=== PATIENT | female | born 1930 | race Caucasian/White ===

== ENCOUNTER → 2016-07-25 | Outpatient (CLI) | payer OTHER ==
[~2016-07-25] MED LIST: MULTI VITAMIN1 EACH PO; NAMENDA 10 MG T10 MG PO; NAPROSYN250 MG PO; NORCO 5-325 TA1 EACH PO
== END ==
LOC: RAD 11:06
DX: M47.894 Other spondylosis, thoracic region (principal); R05 Cough

== ENCOUNTER → 2016-08-20 | Outpatient (CLI) | payer OTHER | LOC: MRI 10:29 | DX: M47.892 Other spondylosis, cervical region (principal); M47.814 Spondylosis without myelopathy or radiculopathy, thoracic region ==